=== PATIENT | female | born 1965 | race Caucasian/White ===

== ENCOUNTER 2021-01-28 19:32 | Inpatient (IN) | payer SELFPAY ==
--- NOTE | 2021-01-28 21:26 | RAD REPORT ---
EXAM DESCRIPTION: RAD - Chest Single View - 01/28/2021 9:15 pm CLINICAL HISTORY: COUGH COMPARISON: No comparisons FINDINGS: No evidence of edema or pneumonia. The heart size is within normal limits.No acute osseous abnormality. No significant pleural effusions or pneumothorax. IMPRESSION: No acute cardiopulmonary disease.
[2021-01-28] MEDS ORDERED: CIPROFLOXACIN 400mg IV 400 MG/200 ML BAG IV ONE (22:15)
[2021-01-28] MEDS ORDERED: NA CHLORIDE 0.9% 1,000 ML ONE ×2 (22:15→23:59)
[2021-01-28] MEDS ORDERED: METRONIDAZOLE 500mg IVPB 500 MG/100 ML BAG IV ONE (22:15)
[2021-01-28 22:33] LABS: Protime INR 1.3
[2021-01-28 22:47] LABS: Absolute Lymphocytes (CBC) 1.5 K/uL (0.7-4.9); Basophils % 0.2 % (0-1.3); Hematocrit 33.3 % (36.0-45.0); MPV 9.4 fL (7.6-11.3)
[2021-01-28 23:01] LABS: ALT/SGPT 61 U/L (12-78); AST/SGOT 43 U/L (15-37); Albumin 2.2 g/dL (3.4-5.0); Alkaline Phosphatase 85 U/L (45-117); BUN Blood Urea Nitrogen 16 mg/dL (7-18); Bicarbonate 27 mmol/L (21-32); Bilirubin Direct 0.1 mg/dL (0-0.2); Bilirubin Total 0.3 mg/dL (0.2-1.0); Glucose Level 121 mg/dL (74-106); Lipase 307 U/L (73-393); Magnesium 2.1 mg/dL (1.8-2.4); NT PRO-BNP 346 pg/mL (<125); Potassium 3.4 mmol/L (3.5-5.1); Protein, Total 6.6 g/dL (6.4-8.2); Sodium Level 142 mmol/L (136-145); Troponin (Emerg Dept Use Only) < 0.02 ng/mL (0.0-0.045)
[2021-01-29] MEDS ORDERED: KCL 20 MEQ/100 mL IVPB 20 MEQ/100 ML BAG IV ONE
[2021-01-29] MEDS ORDERED: FAMOTIDINE 20 MG/2 ML VIAL IV ONE
--- NOTE | 2021-01-29 00:25 | EDPHYS ---
Physician Documentation [facility] Name: Vero Hdz Age: 55 yrs Sex: Female : 1965 Arrival Date: 01/28/2021 Time: 19:57 Bed 8 Private MD: LUIS MIGUEL Physician Amarjit Norris HPI: 01/28 21:29 This 55 yrs old Female presents to ER via EMS with complaints of carmen Nausea/Vomiting/Diarrhea. 21:29 The patient presents to the emergency department with nausea, vomiting, abdominal pain, carmen of the epigastric area, right upper quadrant and left upper quadrant. Onset: The symptoms/episode began/occurred 3 day(s) ago. Possible causes: unknown. The symptoms are aggravated by movement, food , The symptoms are alleviated by nothing. remaining still. Associated signs and symptoms: The patient has no apparent associated signs or symptoms. Severity of symptoms: At their worst the symptoms were mild moderate in the emergency department the symptoms are unchanged. The patient has not experienced similar symptoms in the past. Historical: - Allergies: 20:14 No Known Allergies; lp1 - Home Meds: 20:14 gabapentin oral [Active]; lp1 - PMHx: 20:14 Hypertensive disorder; hyperlipidemia; lp1 - PSHx: 20:14 tubal ligation; lap band; lp1 - Immunization history:: Adult Immunizations up to date. - Social history:: Smoking status: Patient reports the use of cigarette tobacco products, smokes one pack cigarettes per day. ROS: 21:30 Constitutional: Negative for fever, chills, and weight loss, Eyes: Negative for injury, carmen pain, redness, and discharge, ENT: Negative for injury, pain, and discharge, Neck: Negative for injury, pain, and swelling, Cardiovascular: Negative for chest pain, palpitations, and edema, Respiratory: Negative for shortness of breath, cough, wheezing, and pleuritic chest pain, Back: Negative for injury and pain, : Negative for injury, bleeding, discharge, and swelling, MS/Extremity: Negative for injury and deformity, Skin: Negative for injury, rash, and discoloration, Neuro: Negative for headache, weakness, numbness, tingling, and seizure, Psych: Negative for depression, anxiety, suicide ideation, homicidal ideation, and hallucinations, Allergy/Immunology: Negative for hives, rash, and allergies, Endocrine: Negative for neck swelling, polydipsia, polyuria, polyphagia, and marked weight changes, Hematologic/Lymphatic: Negative for swollen nodes, abnormal bleeding, and unusual bruising. 21:30 Abdomen/GI: Positive for abdominal pain, abdominal cramps, abdominal distension, of the epigastric area, right upper quadrant and left upper quadrant. Exam: 21:30 Constitutional: This is a well developed, well nourished patient who is awake, alert, carmen and in no acute distress. Head/Face: Normocephalic, atraumatic. Eyes: Pupils equal round and reactive to light, extra-ocular motions intact. Lids and lashes normal. Conjunctiva and sclera are non-icteric and not injected. Cornea within normal limits. Periorbital areas with no swelling, redness, or edema. ENT: Nares patent. No nasal discharge, no septal abnormalities noted. Tympanic membranes are normal and external auditory canals are clear. Oropharynx with no redness, swelling, or masses, exudates, or evidence of obstruction, uvula midline. Mucous membranes moist. Neck: Trachea midline, no thyromegaly or masses palpated, and no cervical lymphadenopathy. Supple, full range of motion without nuchal rigidity, or vertebral point tenderness. No Meningismus. Chest/axilla: Normal chest wall appearance and motion. Nontender with no deformity. No lesions are appreciated. Cardiovascular: Regular rate and rhythm with a normal S1 and S2. No gallops, murmurs, or rubs. Normal PMI, no JVD. No pulse deficits. Respiratory: Lungs have equal breath sounds bilaterally, clear to auscultation and percussion. No rales, rhonchi or wheezes noted. No increased work of breathing, no retractions or nasal flaring. Back: No spinal tenderness. No costovertebral tenderness. Full range of motion. Female : Normal external genitalia. Skin: Warm, dry with normal turgor. Normal color with no rashes, no lesions, and no evidence of cellulitis. MS/ Extremity: Pulses equal, no cyanosis. Neurovascular intact. Full, normal range of motion. Neuro: Awake and alert, GCS 15, oriented to person, place, time, and situation. Cranial nerves II-XII grossly intact. Motor strength 5/5 in all extremities. Sensory grossly intact. Cerebellar exam normal. Normal gait. Psych: Awake, alert, with orientation to person, place and time. Behavior, mood, and affect are within normal limits. 21:30 Abdomen/GI: Inspection: distension, that is mild, Bowel sounds: active, Palpation: mild abdominal tenderness, moderate abdominal tenderness, in the epigastric area, right upper quadrant and left upper quadrant, Liver: no appreciated palpable abnormalities, Hernia: not appreciated. 21:30 Musculoskeletal/extremity: DVT Exam: No signs of deep vein thrombosis. no pain, no swelling, no tenderness, negative Homans' sign noted on exam, no appreciated bluish discoloration, no erythema, no increased warmth. Vital Signs: 20:08 BP 121 / 73; Pulse 89; Resp 18; Temp 98.9(O); Pulse Ox 97% on R/A; Weight 97.52 kg (R); lp1 Height 5 ft. 4 in. (162.56 cm); Pain 5/10; 21:00 BP 104 / 66; Pulse 88; Resp 18; Pulse Ox 97% on R/A; lp1 22:00 BP 106 / 69; Pulse 76; Resp 18; Pulse Ox 95% on R/A; lp1 22:30 BP 109 / 70; Pulse 75; Resp 18; Pulse Ox 95% on R/A; lp1 23:30 BP 112 / 78; Pulse 73; Resp 18; Pulse Ox 96% on R/A; lp1 08 00:30 BP 107 / 66; Pulse 74; Resp 18; Pulse Ox 95% on R/A; lp1 01:30 BP 118 / 79; Pulse 70; Resp 18; Pulse Ox 96% on R/A; lp1 02:30 BP 102 / 63; Pulse 73; Resp 18; Pulse Ox 95% on R/A; lp1 04:30 BP 104 / 64; Pulse 64; Resp 18; Temp 97.6(O); Pulse Ox 96% on R/A; lp1 05:30 BP 95 / 60; Pulse 70; Resp 18; Pulse Ox 96% on R/A; lp1 06:21 BP 114 / 65; Pulse 67; Resp 18; Pulse Ox 95% on R/A; lp1 01/28 20:08 Body Mass Index 36.90 (97.52 kg, 162.56 cm) lp1 MDM: 01/28 20:19 Patient medically screened. carmen 21:31 Differential diagnosis: Nonspecific abd pain, gastritis, cholecystitis, pancreatitis, carmen diverticulitis. Data reviewed: vital signs, nurses notes, lab test result(s), EKG, radiologic studies, CT scan, plain films. Data interpreted: telemetry monitor: rate is 89 beats/min, rhythm is regular, Pulse oximetry: on room air is 97 %. Test interpretation: by ED physician or midlevel provider: ECG, plain radiologic studies. Counseling: I had a detailed discussion with the patient and/or guardian regarding: the historical points, exam findings, and any diagnostic results supporting the discharge/admit diagnosis, lab results, radiology results, the need for further work-up and treatment in the hospital. 01/28 20:34 Order name: Basic Metabolic Panel [facility] 01/28 20:34 Order name: CBC with Diff [facility] 01/28 20:34 Order name: LFT's; Complete Time: 23:15 [facility] 01/28 20:34 Order name: Magnesium; Complete Time: 23:15 [facility] 01/28 20:34 Order name: NT PRO-BNP; Complete Time: 23:15 [facility] 01/28 20:34 Order name: PT-INR; Complete Time: 23:15 [facility] 01/28 20:34 Order name: Troponin (emerg Dept Use Only); Complete Time: 23:15 [facility] 01/28 20:34 Order name: Lipase; Complete Time: 23:15 [facility] 01/28 20:34 Order name: COVID-19 : Document "Date of Symptom Onset" if Symptomatic. [facility] 01/28 20:34 Order name: Fecal Leukocyte Stain [facility] 01/28 20:34 Order name: Occult Blood [facility] 01/28 20:34 Order name: Stool Culture [facility] 01/28 20:34 Order name: Lactate; Complete Time: 23:15 [facility] 01/28 20:34 Order name: Procalcitonin; Complete Time: 00:22 [facility] 01/28 20:34 Order name: XRAY Chest (1 view); Complete Time: 21:50 [facility] 01/28 20:34 Order name: EKG; Complete Time: 20:35 [facility] 01/28 20:35 Order name: Basic Metabolic Panel; Complete Time: 23:15 [facility] 01/28 20:35 Order name: CBC with Automated Diff; Complete Time: 23:15 [facility] 01/28 21:29 Order name: CT Abd/Pelvis - IV Contrast Only [facility] 01/29 06:09 Order name: SARS-COV-2 RT PCR [facility] 01/29 06:11 Order name: CBC with Automated Diff [facility] 01/29 06:22 Order name: Comprehensive Metabolic Panel [facility] 01/29 06:22 Order name: T4 Free [facility] 01/29 06:22 Order name: Thyroid Stimulating Hormone [facility] 01/28 20:34 Order name: Cardiac monitoring; Complete Time: 22:15 [facility] 01/28 20:34 Order name: EKG - Nurse/Tech; Complete Time: 23:03 [facility] 01/28 20:34 Order name: IV Saline Lock; Complete Time: 22:16 [facility] 01/28 20:34 Order name: Labs collected and sent; Complete Time: 22:16 [facility] 01/28 20:34 Order name: O2 Per Protocol; Complete Time: 22:16 [facility] 01/28 20:34 Order name: O2 Sat Monitoring; Complete Time: 22:16 [facility] Administered Medications: 22:15 Drug: NS 0.9% 1000 ml Route: IV; Rate: 1 bolus; Site: left antecubital; [facility] 23:49 Follow up: IV Status: Completed infusion; IV Intake: 1000ml [facility] 22:15 Drug: Cipro (ciprofloxacin) 400 mg Volume: 200 ml; Route: IVPB; Infused Over: 60 mins; lp1 Site: left antecubital; 23:15 Follow up: IV Status: Completed infusion; IV Intake: 200ml lp1 23:49 Drug: Flagyl (metroNIDAZOLE) 500 mg Volume: 100 ml; Route: IVPB; Rate: 200 ml/hr; lp1 Infused Over: 30 mins; Site: left antecubital; 01/29 00:31 Follow up: IV Status: Completed infusion; IV Intake: 100ml [facility] 01/28 23:50 Drug: NS 0.9% 1000 ml Route: IV; Rate: 1 bolus; Site: left antecubital; 1 01/29 01:30 Follow up: IV Status: Completed infusion; IV Intake: 1000ml [facility] 01/28 23:50 Drug: Pepcid (famotidine) 20 mg Route: IVP; Site: left antecubital; 1 01/29 00:31 Follow up: Response: No adverse reaction [facility] 00:20 Drug: Potassium Chloride 20 mEq Route: IV; Rate: per protocol; Site: left antecubital; lp1 02:30 Follow up: IV Status: Completed infusion; IV Intake: 100ml lp1 Disposition Summary: 01/29/21 00:25 Hospitalization Ordered Hospitalization Status: Observation carmen Provider: Aram Tinoco cha Location: Telemetry/MedSurg (observation) carmen Condition: Fair carmen Problem: new carmen Symptoms: have improved carmen Bed/Room Type: Standard [facility] Room Assignment: 223(01/29/21 06:17) mw Diagnosis - Upper abdominal pain, unspecified carmen - Diarrhea, unspecified carmen - Hypokalemia carmen - Left sided colitis - PAIN, DIARRHEA carmen Forms: - Medication Reconciliation Form carmen - SBAR form carmen Signatures: Dispatcher [employer] EDRose Marie Tobin RN RN Amarjit Mark MD MD cha Pena, Laura, RN RN lp1 Corrections: (The following items were deleted from the chart) 06:17 00:25 carmen mw
--- NOTE | 2021-01-29 00:25 | ER ---
Nurse's Notes [facility] Name: Vero Hdz Age: 55 yrs Sex: Female : 1965 Arrival Date: 01/28/2021 Time: 19:57 Bed 8 Private MD: Diagnosis: Upper abdominal pain, unspecified;Diarrhea, unspecified;Hypokalemia;Left sided colitis-PAIN, DIARRHEA Presentation: 01/28 20:08 Chief complaint: EMS states: Called for patient with upper abdominal pain, N/V/D x 2 lp1 weeks. Ultrasound performed 1 week ago, no significant findings. Coronavirus screen: Client denies travel out of the [place] in the last 14 days. The client reports previous COVID testing was negative. Ebola Screen: No symptoms or risks identified at this time. Initial Sepsis Screen: Does the patient meet any 2 criteria? No. Patient's initial sepsis screen is negative. Does the patient have a suspected source of infection? No. Patient's initial sepsis screen is negative. Risk Assessment: Do you want to hurt yourself or someone else? Patient reports no desire to harm self or others. 20:08 Acuity: DARBY 3 lp1 20:08 Method Of Arrival: EMS: [facility] lp1 20:12 Onset of symptoms was January 28, 2021. Care prior to arrival: Medication(s) given: Zofran lp1 4mg IV, Fentanyl 100mcg IV IV initiated. 20 GA, in the left antecubital area. Historical: - Allergies: 20:14 No Known Allergies; lp1 - Home Meds: 20:14 gabapentin oral [Active]; lp1 - PMHx: 20:14 Hypertensive disorder; hyperlipidemia; lp1 - PSHx: 20:14 tubal ligation; lap band; lp1 - Immunization history:: Adult Immunizations up to date. - Social history:: Smoking status: Patient reports the use of cigarette tobacco products, smokes one pack cigarettes per day. Screenin:15 Abuse screen: Denies threats or abuse. Denies injuries from another. Nutritional lp1 screening: No deficits noted. Tuberculosis screening: No symptoms or risk factors identified. Fall Risk Total [place]na Fall Scale indicates No Risk (0-24 pts). Assessment: 20:16 General: Appears uncomfortable, Behavior is appropriate for age. Pain: Complains of lp1 pain in right upper quadrant and left upper quadrant Pain currently is 5 out of 10 on a pain scale. Quality of pain is described as sharp. Neuro: Level of Consciousness is awake, alert, obeys commands, Oriented to person, place, time, situation. Cardiovascular: Patient's skin is warm and dry. Respiratory: Respiratory effort is even, unlabored, Breath sounds are clear bilaterally. GI: Abdomen is non-distended, Bowel sounds present X 4 quads. Abdomen is tender to palpation in right upper quadrant and left upper quadrant Reports diarrhea, nausea, vomiting. : No signs and/or symptoms were reported regarding the genitourinary system. EENT: No signs and/or symptoms were reported regarding the EENT system. Derm: Skin is intact, Skin is dry, Skin is normal. Musculoskeletal: No deficits noted. 21:30 Reassessment: Patient appears in no apparent distress at this time. Patient to [facility] bathroom, unable to collect stool sample. 22:45 Reassessment: Patient appears in no apparent distress at this time. Patient and/or lp1 family updated on plan of care and expected duration. Pain level reassessed. Patient is alert, oriented x 3, equal unlabored respirations, skin warm/dry/pink. Patient asking for water, aware of waiting for imaging results prior to PO food or fluids. 01/29 00:00 Reassessment: Patient appears in no apparent distress at this time. Patient is alert, lp1 oriented x 3, equal unlabored respirations, skin warm/dry/pink. Patient states symptoms have improved. 01:00 Reassessment: Patient appears in no apparent distress at this time. Patient ambulated lp1 to bathroom independently. 04:00 Reassessment: Patient appears in no apparent distress at this time. Patient is alert, lp1 oriented x 3, equal unlabored respirations, skin warm/dry/pink. Patient aware of waiting for COVID result for admission. 05:30 Reassessment: Patient appears in no apparent distress at this time. No changes from [facility] previously documented assessment. Vital Signs: 01/28 20:08 BP 121 / 73; Pulse 89; Resp 18; Temp 98.9(O); Pulse Ox 97% on R/A; Weight 97.52 kg (R); lp1 Height 5 ft. 4 in. (162.56 cm); Pain 5/10; 21:00 BP 104 / 66; Pulse 88; Resp 18; Pulse Ox 97% on R/A; lp1 22:00 BP 106 / 69; Pulse 76; Resp 18; Pulse Ox 95% on R/A; lp1 22:30 BP 109 / 70; Pulse 75; Resp 18; Pulse Ox 95% on R/A; lp1 23:30 BP 112 / 78; Pulse 73; Resp 18; Pulse Ox 96% on R/A; lp1 01/29 00:30 BP 107 / 66; Pulse 74; Resp 18; Pulse Ox 95% on R/A; lp1 01:30 BP 118 / 79; Pulse 70; Resp 18; Pulse Ox 96% on R/A; lp1 02:30 BP 102 / 63; Pulse 73; Resp 18; Pulse Ox 95% on R/A; lp1 04:30 BP 104 / 64; Pulse 64; Resp 18; Temp 97.6(O); Pulse Ox 96% on R/A; lp1 05:30 BP 95 / 60; Pulse 70; Resp 18; Pulse Ox 96% on R/A; lp1 06:21 BP 114 / 65; Pulse 67; Resp 18; Pulse Ox 95% on R/A; lp1 01/28 20:08 Body Mass Index 36.90 (97.52 kg, 162.56 cm) lp1 ED Course: 01/28 19:57 Patient arrived in ED. mw2 20:04 Desean Lomax, RN is Primary Nurse. em 20:10 Triage completed. lp1 20:14 Arm band placed on left wrist. lp1 20:15 So Benjamin, RN is Primary Nurse. lp1 20:16 Patient has correct armband on for positive identification. lp1 20:19 Amarjit Norris MD is Attending Physician. carmen 21:15 XRAY Chest (1 view) In Process Unspecified. EDMS 22:00 Maintain EMS IV. Dressing intact. Good blood return noted. Site clean \T\ dry. Gauge \T\ lp 1 site: 20g to L AC. 23:39 CT Abd/Pelvis - IV Contrast Only In Process Unspecified. EDMS 01/29 00:23 Aram Tinoco is Hospitalizing Provider. carmen 04:38 No provider procedures requiring assistance completed. Patient admitted, IV remains in lp1 place. Administered Medications: 01/28 22:15 Drug: NS 0.9% 1000 ml Route: IV; Rate: 1 bolus; Site: left antecubital; lp1 23:49 Follow up: IV Status: Completed infusion; IV Intake: 1000ml lp1 22:15 Drug: Cipro (ciprofloxacin) 400 mg Volume: 200 ml; Route: IVPB; Infused Over: 60 mins; lp1 Site: left antecubital; 23:15 Follow up: IV Status: Completed infusion; IV Intake: 200ml lp1 23:49 Drug: Flagyl (metroNIDAZOLE) 500 mg Volume: 100 ml; Route: IVPB; Rate: 200 ml/hr; lp1 Infused Over: 30 mins; Site: left antecubital; 01/29 00:31 Follow up: IV Status: Completed infusion; IV Intake: 100ml lp1 01/28 23:50 Drug: NS 0.9% 1000 ml Route: IV; Rate: 1 bolus; Site: left antecubital; lp1 01/29 01:30 Follow up: IV Status: Completed infusion; IV Intake: 1000ml lp1 01/28 23:50 Drug: Pepcid (famotidine) 20 mg Route: IVP; Site: left antecubital; lp1 01/29 00:31 Follow up: Response: No adverse reaction lp1 00:20 Drug: Potassium Chloride 20 mEq Route: IV; Rate: per protocol; Site: left antecubital; lp1 02:30 Follow up: IV Status: Completed infusion; IV Intake: 100ml lp1 Intake: 01/28 23:15 IV: 200ml; Total: 200ml. lp1 23:49 IV: 1000ml; Total: 1200ml. lp1 01/29 00:31 IV: 100ml; Total: 1300ml. lp1 01:30 IV: 1000ml; Total: 2300ml. lp1 02:30 IV: 100ml; Total: 2400ml. lp1 Outcome: 00:25 Decision to Hospitalize by Provider. carmen 04:38 Condition: stable lp1 04:38 Instructed on the need for admit. 06:25 Admitted to Med/surg room 223, with chart, Report called to URBAN Vanegas lp1 06:38 Patient left the ED. lp1 Signatures: Dispatcher [employer] Amarjit Prince MD MD cha Munoz, Edgar, RN RN So Root, RN RN 1 Zafar Nicole mw2 Corrections: (The following items were deleted from the chart) 01/28 20:14 20:08 Chief complaint: EMS states: Called for patient with upper abdominal pain, N/V/D lp1 x 2 weeks. Ultrasound performed 1 week ago lp1 22:16 22:16 Reassessment: Patient appears in no apparent distress at this time. Patient to 1 bathroom, unable to collect stool sample 1 01/29 05:53 05:52 BP 95 / 60; Pulse 70bpm; Resp 18bpm; Pulse Ox 96% RA; lp1 lp1
--- NOTE | 2021-01-29 01:15 | P.HP ---
Certification for Inpatient Patient admitted to: Observation With expected LOS: <2 Midnights Patient will require the following post-hospital care: None Practitioner: I am a practitioner with admitting privileges, knowledge of patient current condition, hospital course, and medical plan of care. Services: Services provided to patient in accordance with Admission requirements found in Title 42 Section 412.3 of the Code of Federal Regulations Patient History Date of Service: 01/29/21 Reason for admission: Colitis History of Present Illness: 55-year-old female with history of hypertension, hyperlipidemia presents to emergency department for abdominal pain, nausea, vomiting, diarrhea. Patient reports increasing abdominal pain over the course of the last 2 weeks with diarrhea over the course of the last few days. Patient evaluated in the emergency department, labs significant for white blood cell count 7.4 hemoglobin 10.3 hematocrit 33.3 potassium 3.4 chloride 109 GFR 54 glucose [address] demonstrating colitis pattern. Patient started on Cipro/Flagyl in the emergency department ED provider wishes to admit under observation for further evaluation and management. - Past Medical/Surgical History -: Hyperlipidemia -: Hypertension -: Tubal ligation -: lap band Psychosocial/ Personal History: Unemployed, lives with family - Family History Father -: Cancer Mother -: Diabetes - Social History Smoking Status: Never smoker Alcohol use: No CD- Drugs: No Caffeine use: Yes Place of Residence: Home Review of Systems 10-point ROS is otherwise unremarkable Gastrointestinal: Nausea, Abdominal Pain, Diarrhea Physical Examination - Physical Exam General: Alert, In no apparent distress, Oriented x3 HEENT: Atraumatic, PERRLA, Mucous membr. moist/pink, EOMI Neck: Supple, 2+ carotid pulse no bruit, No LAD Respiratory: Clear to auscultation bilaterally, Normal air movement Cardiovascular: Regular rate/rhythm, Normal S1 S2 Gastrointestinal: Normal bowel sounds, No tenderness, No rebound, No guarding, Tenderness (Moderate abdominal tenderness left upper quadrant) Musculoskeletal: No tenderness Integumentary: No rashes Neurological: Normal gait, Normal speech, Normal strength at 5/5 x4 extr, Normal tone, Normal affect Lymphatics: No axilla or inguinal lymphadenopathy - Studies Laboratory Data (last 24 hrs) 01/28/21 22:00: PT 15.0 H, INR 1.30 01/28/21 22:00: WBC 7.40, Hgb 11.3 L, Hct 33.3 L, Plt Count 273 01/28/21 22:00: Sodium 142, Potassium 3.4 L, BUN 16, Creatinine 1.06, Glucose 121 H, Magnesium 2.1, Total Bilirubin 0.3, AST 43 H, ALT 61, Alkaline Phosphatase 85, Lipase 307 Microbiology Data (last 24 hrs): 01/28/21 20:34 Stool Stool Occult Blood (REINALDO) - Final MOLDING ASSOCIATE Assessment and Plan - Plan Assessment: Abdominal pain, diarrhea, nausea secondary to acute colitis Hypokalemia Hypertension, hyperlipidemia Plan: Abdominal pain, diarrhea, nausea secondary to acute colitis: Clear liquids, advance as tolerated. IV Cipro/Flagyl, probiotics. Patient will need outpatient follow-up with GI, has never had colonoscopy/endoscopy. IV fluids. Anticipate clinical improvement over the course of next 24 to 48 hours. Hypokalemia: Potassium protocol in place. Hypertension, hyperlipidemia: Obtain and continue medications as appropriate. DVT PPX: Lovenox Code status: Full Discharge Plan: Home Plan to discharge in: 24 Hours - Advance Directives Does patient have a Living Will: No Does patient have a Durable POA for Healthcare: No - Code Status/Comfort Care Code Status Assessed: Yes (Full code) Critical Care: No Time Spent Managing Pts Care (In Minutes): 55
[2021-01-29] MEDS ORDERED: MORPHINE 2 MG/ML SYR IV PRN (05:13)
[2021-01-29] MEDS ORDERED: ONDANSETRON 4 MG/2 ML VIAL IV PRN (05:13)
[2021-01-29] MEDS: NA CHLORIDE 0.9% 1,000 ML IV SCH ×2 (05:13→15:00)
[2021-01-29] MEDS ORDERED: NA CHLORIDE 0.9% 1,000 ML ONE (05:49)
[2021-01-29 06:01] LABS: Absolute Lymphocytes (CBC) 1.5 K/uL (0.7-4.9); Basophils % 0.5 % (0-1.3); Hematocrit 29.9 % (36.0-45.0); MPV 9.2 fL (7.6-11.3)
[2021-01-29 06:20] LABS: Albumin 1.9 g/dL (3.4-5.0); Bilirubin Total 0.3 mg/dL (0.2-1.0); Potassium 3.6 mmol/L (3.5-5.1); Protein, Total 5.7 g/dL (6.4-8.2); Thyroid Stimulating Hormone 1.51 uIU/mL (0.360-3.740)
[2021-01-29] MEDS: METRONIDAZOLE 500mg IVPB 500 MG/100 ML BAG IV SCH ×2 (08:33→16:32)
[2021-01-29] MEDS: LACTOBACILLUS/ACIDOPHILUS TAB PO SCH ×3 (08:38→20:25)
[2021-01-29] MEDS: ENOXAPARIN 40 MG/0.4 ML SQ SCH (08:39)
[2021-01-29] MEDS: CIPROFLOXACIN 400mg IV 400 MG/200 ML BAG IV SCH ×2 (08:40→20:25)
[2021-01-29] MEDS ORDERED: POTASSIUM CL SA 10 MEQ TAB PO ONE (09:00)
[2021-01-29 10:23] VITALS: BMI 36.1
[2021-01-29 12:29] LABS: C.diff Antigen/Toxin Ag neg : Tox neg (NEG : NEG)
--- NOTE | 2021-01-29 15:16 | P.PN ---
Date of Service: 01/29/21 Patient seen and examined. She still complaining of abdominal pain. Had 4 diarrheal BM already this morning. Diagosis; Acute gastroenteritis Continue supportive measures w.ith IV fluid IV antibiotics. Stool for C. diff is negative Check other stool studies given 1-2 weeks of diarrhea. Colonoscopy as an outpatient.
[2021-01-30] MEDS: NA CHLORIDE 0.9% 1,000 ML IV SCH ×2 (00:25→13:04)
[2021-01-30] MEDS: METRONIDAZOLE 500mg IVPB 500 MG/100 ML BAG IV SCH ×3 (00:26→16:48)
[2021-01-30 03:27] VITALS: O2SAT 94
[2021-01-30 05:44] LABS: Absolute Lymphocytes (CBC) 1.4 K/uL (0.7-4.9); Basophils % 0.7 % (0-1.3); Hematocrit 28.2 % (36.0-45.0); Lymphocytes % 23.3 % (15.3-44.8); MPV 8.6 fL (7.6-11.3); RBC Red Blood Cell Count 3.09 M/uL (3.86-4.86)
[2021-01-30 05:56] LABS: Albumin 1.9 g/dL (3.4-5.0); Bilirubin Total 0.3 mg/dL (0.2-1.0); Potassium 3.6 mmol/L (3.5-5.1); Protein, Total 5.6 g/dL (6.4-8.2)
[2021-01-30] MEDS: LACTOBACILLUS/ACIDOPHILUS TAB PO SCH ×2 (08:04→13:04)
[2021-01-30] MEDS: ENOXAPARIN 40 MG/0.4 ML SQ SCH (08:05)
[2021-01-30 08:21] LABS: Urine Appearance CLOUDY (Clear); Urine Blood NEGATIVE (Negative); Urine Color ORANGE (Yellow); Urine Glucose NEGATIVE (Negative); Urine Protein 1+ (Negative); Urine Specific Gravity >=1.030 (1.005-1.030); Urine Urobilinogen 0.2 mg/dL (0.2-1.0); Urine pH 5.5 (5.0-7.0)
[2021-01-30 08:29] LABS: Urine Bilirubin 1+ (Negative)
[2021-01-30 08:30] LABS: Urine Microscopic Reflex ORDER UMIC
[2021-01-30] MEDS: CIPROFLOXACIN 400mg IV 400 MG/200 ML BAG IV SCH (08:50)
[2021-01-30 08:51] LABS: Urine Bacteria 20-50 /HPF (<20); Urine RBC NONE SEEN /HPF (NONE SEEN)
[2021-01-30] MEDS ORDERED: POTASSIUM CL SA 10 MEQ TAB PO ONE (09:00)
--- NOTE | 2021-01-30 10:01 | RAD REPORT ---
EXAM DESCRIPTION: CT Abdomen and Pelvis With Intravenous Contrast CLINICAL HISTORY: The patient is 55 years old and is Female; Abd pain;Abdominal distention TECHNIQUE: Axial computed tomography images of the abdomen and pelvis with intravenous contrast. S agittal and coronal reformatted images were created and reviewed. This CT exam was performed using one or more of the following dose reduction techniques: automated exposure control, adjustment of t he mA and/or kV according to patient size, and/or use of iterative reconstruction technique. COMPARISON: No relevant prior studies available. FINDINGS: Lung bases: Unremarkable. No mass. No consolidation. ABDOMEN: Liver: Hepatomegaly. Gallbladder and bile ducts: Unremarkable. No calcified stones. No ductal dilation. Pancreas: Unremarkable. No mass. No ductal dilation. Spleen: Unremarkable. No splenomegaly. Adrenals: Unremarkable. No mass. Kidneys and ureters: Multiple simple cysts in the right kidney. ACR White Paper guidelines (Nash , et al. JACR 2018; 15(2):264-273) suggest no follow-up is necessary. No hydronephrosis. Stomach and bowel: There is a suggestion of mild bowel wall thickening and fat stranding involvin g the left colon. No obstruction. PELVIS: Appendix: The appendix is normal. Bladder: Unremarkable. No mass. Reproductive: Unremarkable as visualized. ABDOMEN and PELVIS: Intraperitoneal space: Unremarkable. No free air. No significant fluid collection. Bones/joints: No acute fracture. No dislocation. Soft tissues: Unremarkable. Vasculature: Scattered atherosclerotic vascular calcifications. No abdominal aortic aneurysm. Lymph nodes: Unremarkable. No enlarged lymph nodes. Tubes, lines and devices: Gastric lap band. IMPRESSION: 1. Hepatomegaly. 2. Gastric lap band. 3. There is a suggestion of mild bowel wall thickening and fat stranding involving the left colon. Correlate with any concern for colitis. Electronically signed by: Hernandez Mena MD 01/29/2021 12:08 AM CDT Due to temporary technical issues with the PACS/Fluency reporting system, reports are being signed by the in house radiologists without review as a courtesy to insure prompt reporting. The interpreting radiologist is fully responsible for the content of the report.
[2021-01-30] MEDS ORDERED: predniSONE 20 MG TAB PO SCH (12:23)
--- NOTE | 2021-01-30 14:54 | P.PN ---
Subjective Date of Service: 01/30/21 Chief Complaint: Colitis Patient to feeling sick with nausea and vomiting and diarrhea. She has 3 watery diarrhea this morning. No fever. She is not tolerating food. Physical Examination - Vital Signs Temperature: 97.4 F Blood Pressure: 133/71 Pulse: 65 Respirations: 17 Pulse Ox (%): 97 - Physical Exam General: Alert, Mild distress HEENT: Mucous membr. moist/pink Neck: JVD not distended Respiratory: Clear to auscultation bilaterally, Normal air movement Cardiovascular: No edema, Regular rate/rhythm, Normal S1 S2 Gastrointestinal: Normal bowel sounds, Soft and benign, Non-distended, Tenderness (Mild diffuse tenderness.) Musculoskeletal: No swelling Integumentary: No rashes Neurological: Normal strength at 5/5 x4 extr Assessment And Plan - Current Problems (Diagnosis) (1) Gastroenteritis Current Visit: Yes Status: Acute (2) Hypoalbuminemia Current Visit: Yes Status: Acute (3) Hypertension Current Visit: Yes Status: Acute - Plan Patient with significant hypoalbuminemia. Not sure how much this is related to her diarrhea and other symptoms. I suspect chronic bowel disease-probably inflammatory. Patient definitely needs a colonoscopy. She has not responded much to antibiotics. Stool for C. diff is negative. Stool for fecal leukocyte: few leukocytes. Bacterial gastroenteritis unlikely. Continue antibiotics for now. Added a trial of oral steroid. Diet as tolerated. Follow other stool studies Continue supportive measures with IV hydration.
[2021-01-30 16:40] VITALS: BP 122/69; TEMP 98
--- NOTE | 2021-01-30 19:47 | P.DS ---
Admission Date: 01/29/21 Discharge Date: 01/30/21 Disposition: ROUTINE DISCHARGE Discharge Condition: FAIR Reason for Admission: Colitis - Problems (1) Gastroenteritis Current Visit: Yes Status: Acute (2) Hypoalbuminemia Current Visit: Yes Status: Acute (3) Hypertension Current Visit: Yes Status: Acute Brief History of Present Illness: 55-year-old woman with history of hypertension, hyperlipidemia presents to [facility] department for abdominal pain, nausea, and diarrhea. Patient report 2 weeks of abdominal pain with diarrhea. CT in the ED demonstrated colitis pattern. Patient started on Cipro/Flagyl in the emergency department and admitted for further management. Hospital Course: Patient admitted to the medical floor and treated with IV antibiotics-Cipro and Flagyl, and IV hydration. Stool for fecal leukocyte stain showed few WBC making bacterial infection likely. Stool for C. diff is negative. Patient continued to experience watery diarrhea. She initially had nausea which improved after trial of oral prednisone. She has tolerated liquid and soft diet. Patient is discharged with oral antibiotic, the short course of oral prednisone. She is informed to stay hydrated by oral rehydration. Patient will follow with Dr. Bain for further evaluation including colonoscopy. Vital Signs/Physical Exam: Temp Pulse Resp BP Pulse Ox 98.0 F 68 17 122/69 98 01/30/21 16:00 01/30/21 16:00 01/30/21 16:00 01/30/21 16:00 01/30/21 16:00 General: Alert, In no apparent distress, Oriented x3 HEENT: Mucous membr. moist/pink Neck: JVD not distended Respiratory: Clear to auscultation bilaterally, Normal air movement Cardiovascular: No edema, Regular rate/rhythm, Normal S1 S2 Gastrointestinal: Normal bowel sounds, Soft and benign, Non-distended, No tenderness Musculoskeletal: No swelling Integumentary: No rashes Neurological: Normal strength at 5/5 x4 extr Laboratory Data at Discharge: WBC 5.80 K/uL (4.3-10.9) 01/30/21 05:19 Hgb 9.5 g/dL (12.0-15.0) L 01/30/21 05:19 Hct 28.2 % (36.0-45.0) L 01/30/21 05:19 Plt Count 234 K/uL (152-406) 01/30/21 05:19 PT 15.0 SECONDS (9.5-12.5) H 01/28/21 22:00 INR 1.30 01/28/21 22:00 Sodium 140 mmol/L (136-145) 01/30/21 05:19 Potassium 3.6 mmol/L (3.5-5.1) 01/30/21 05:19 BUN 8 mg/dL (7-18) 01/30/21 05:19 Creatinine 0.91 mg/dL (0.55-1.3) 01/30/21 05:19 Glucose 112 mg/dL (74-106) H 01/30/21 05:19 Magnesium 2.1 mg/dL (1.8-2.4) 01/28/21 22:00 Total Bilirubin 0.3 mg/dL (0.2-1.0) 01/30/21 05:19 AST 19 U/L (15-37) 01/30/21 05:19 ALT 38 U/L (12-78) 01/30/21 05:19 Alkaline Phosphatase 68 U/L (45-117) 01/30/21 05:19 Lipase 307 U/L (73-393) 01/28/21 22:00 Home Medications: Gabapentin 100 mg PO BEDTIME 01/29/21 Lisinopril/Hydrochlorothiazide [Lisinopril-Hctz 20-12.5 mg Tab] 1 tab PO DAILY 01/29/21 Sertraline [Zoloft*] 50 mg PO DAILY 01/29/21 Ciprofloxacin HCl [Cipro 500 MG Tablet] 500 mg PO BID #5 tab 01/30/21 Lactobacillus Acidophilus [Acidophilus] 1 each PO TID #90 capsule 01/30/21 metroNIDAZOLE [Flagyl] 500 mg PO TID #15 tablet 01/30/21 predniSONE [Prednisone*] 20 mg PO DAILY #5 tab 01/30/21 New Medications: Lactobacillus Acidophilus [Acidophilus] 1 each PO TID #90 capsule Ciprofloxacin HCl [Cipro 500 MG Tablet] 500 mg PO BID #5 tab metroNIDAZOLE [Flagyl] 500 mg PO TID #15 tablet predniSONE [Prednisone*] 20 mg PO DAILY #5 tab Diet: AHA (Progress from GI soft diet to solid diet as tolerated.) Activity: Ad te Followup: NONE,NONE [Primary Care Provider] - Chapo Priest MD [ACTIVE - CAN ADMIT] - 1-2 Weeks Time spent managing pt's care (in minutes): 34
== END 2021-01-30 20:41 | disposition home or self-care (01) | DRG 392 ==
LOC: ER 19:32 → ERHOLD 01-29 01:05 → 2ND 01-29 06:35 → OBSVTOIN 01-29 08:04
PROVIDERS: ADMIT Internal Medicine; ATTEND Internal Medicine
DX: K52.9 Noninfective gastroenteritis and colitis, unspecified (principal); I10 Essential (primary) hypertension; E78.5 Hyperlipidemia, unspecified; E88.09 Other disorders of plasma-protein metabolism, not elsewhere classified; Z98.84 Bariatric surgery status; Z20.822 Contact with and (suspected) exposure to COVID-19
CPT/HCPCS: 36415; 71045; 74177; 80048; 80053; 80076; 81003; 81015; 82274; 82565; 83605; 83690; 83735; 83880; 84145; 84439; 84443; 84484; 85025; 85610; 87045; 87046; 87086; 87088; 87177; 87209; 87324; 87449; 89055; 96361; 96365; 96366; 96367; 96368; 96375; 99285; G0378; J0744; J1650; J2270; J2405; J7030; J7512; Q9967; U0003